=== PATIENT | female | born 1985 | race American Indian/Alaskan Native ===

== ENCOUNTER 2017-09-16 18:53 | Emergency (ER) | payer SELFPAY ==
[2017-09-16 19:42] LABS: Hematocrit 42.4 % (30.3-42.9); Hemoglobin 13.9 gm/dl (10.1-14.3); Mean Corpuscular HGB Conc 33 % (30-34); Mean Corpuscular Hemoglobin 28 pg (28-32); Mean Corpuscular Volume 85 fl (79-97); Platelet Count 204 K/mm3 (140-440); Red Blood Count 4.97 M/mm3 (3.65-5.03); Red Cell Distribution Width 14.1 % (13.2-15.2)
[2017-09-16 19:57] LABS: BUN/Creatinine Ratio 14; Blood Urea Nitrogen 7 mg/dL (7-17); Calcium 9.5 mg/dL (8.4-10.2); Hemolysis Index 13
[2017-09-16 20:09] LABS: Amorphous Crystals,Urine Few; Bacteria,Urine 1+ /HPF (Negative); Bilirubin,Urine NEG (Negative); Blood,Urine SM (Negative); Color,Urine Yellow (Yellow); Protein,Urine <15 mg/dL mg/dL (Negative); Urobilinogen,Urine < 2.0 mg/dL (<2.0)
--- NOTE | 2017-09-16 23:01 | Ultrasound Report ---
FINAL REPORT PROCEDURE: US OB < = 14 WEEKS FETUS TECHNIQUE: Real-time transabdominal sonography of the uterus, placenta, amniotic fluid, adnexa, and fetus was performed with image documentation. Measurements were obtained to determine age/size. M-mode Doppler was used to document heartbeat. CPT 23248 HISTORY: VAGINAL BLEED WITH COMPARISON: Transvaginal OB ultrasound also performed today. FINDINGS: This report was generated using images from both the transabdominal and transvaginal OB ultrasound both of which were performed today. There is an intrauterine gestation visualized. The amount of amniotic fluid is markedly decreased. A pole is seen measuring 12.3 millimeters corresponding to an age is 7 weeks 3 days. Despite persistent imaging no heartbeat was seen consistent with intrauterine demise. Uterus otherwise is unremarkable. Right ovary is unremarkable measuring 2.7 x 2.2 x 2.5 centimeters. Left ovary measures 3.6 x 2.7 x 2.9 centimeters and contains simple appearing cyst measuring 2.2 centimeter which may represent corpus luteum cyst of . No free fluid is seen in the cul-de-sac. IMPRESSION: Intrauterine visualized. No heartbeat is seen. The appearance is consistent with intrauterine demise. By crown-rump length measurement the estimated age is 7 weeks 3 days. Simple appearing cyst visualize left ovary as described. Critical value: Wet reading was given to SIRI Bills on 09/16/2017 at 10:55 p.m. Eastern standard time.
--- NOTE | 2017-09-16 23:02 | Ultrasound Report ---
FINAL REPORT PROCEDURE: US OB TRANSVAGINAL TECHNIQUE: Real-time transvaginal sonography of the uterus, placenta, amniotic fluid, adnexa, and fetus was performed with image documentation. Measurements were obtained to determine age/size. M-mode Doppler was used to document heartbeat. CPT 55599 HISTORY: VAGINAL BLEED WITH COMPARISON: Transabdominal OB ultrasound also performed today. FINDINGS: This report was generated using images from both the transabdominal and transvaginal OB ultrasound both of which were performed today. There is an intrauterine gestation visualized. The amount of amniotic fluid is markedly decreased. A pole is seen measuring 12.3 millimeters corresponding to an age is 7 weeks 3 days. Despite persistent imaging no heartbeat was seen consistent with intrauterine demise. Uterus otherwise is unremarkable. Right ovary is unremarkable measuring 2.7 x 2.2 x 2.5 centimeters. Left ovary measures 3.6 x 2.7 x 2.9 centimeters and contains simple appearing cyst measuring 2.2 centimeter which may represent corpus luteum cyst of . No free fluid is seen in the cul-de-sac. IMPRESSION: Intrauterine visualized. No heartbeat is seen. The appearance is consistent with intrauterine demise. By crown-rump length measurement the estimated age is 7 weeks 3 days. Simple appearing cyst visualize left ovary as described. Critical value: Wet reading was given to SIRI Bills on 09/16/2017 at 10:55 p.m. Eastern standard time.
--- NOTE | 2017-09-16 23:22 | Emergency Department Report ---
HPI - General Chief Complaint: Vaginal Bleeding Time Seen by Provider: 09/16/17 23:11 - HPI HPI: Room 25 The patient is a 31-year-old female presenting with chief complaint of vaginal bleeding. The patient states she is 8 weeks but has not seen an OB/ RECTIFIER OPERATOR for this . The patient states this morning she developed intermittent light vaginal bleeding associated with low pelvic cramping and pain in both eyes. Patient denies any history of fever. Location: Pelvis Duration: One day Quality: Cramping Severity: Mild Modifying factors: [see above] Context: [see above] Mode of transportation: Unknown ED Past Medical Hx - Past Medical History Previous Medical History?: No - Surgical History Past Surgical History?: No - Family History Family history: no significant - Social History Smoking Status: Never Smoker Substance Use Type: None (denies illicit drug use) - Medications Home Medications: Home Medications Medication Instructions Recorded Confirmed Last Taken Type HYDROcodone/APAP 5-325 [[place] 1 - 2 each PO Q6HR PRN #10 tablet 09/16/17 Unknown Rx 5/325] Ibuprofen [Motrin 800 MG tab] 800 mg PO Q8HR PRN #20 tablet 09/16/17 Unknown Rx ED Review of Systems ROS: Stated complaint: VAGINAL BLEEDING/ Other details as noted in HPI Constitutional: denies: fever Gastrointestinal: abdominal pain Genitourinary: abnormal menses Physical Exam - Physical Exam Vital Signs: Vital Signs 09/16/17 19:15 Temperature 99.2 F Pulse Rate 91 H Respiratory 18 Rate Blood Pressure 131/85 O2 Sat by Pulse 100 Oximetry Physical Exam: GENERAL: The patient is well-developed well-nourished female sitting on chair not appearing to be in acute distress. [] HEENT: Normocephalic. Atraumatic. Extraocular motions are intact. Patient has moist mucous membranes. NECK: Supple. Trachea midline CHEST/LUNGS: Clear to auscultation. There is no respiratory distress noted. HEART/CARDIOVASCULAR: Regular. There is no tachycardia. There is no gallop rub or murmur. ABDOMEN: Abdomen is soft, nontender. Patient has normal bowel sounds. There is no abdominal distention. SKIN: There is no rash. There is no edema. There is no diaphoresis. NEURO: The patient is awake, alert, and oriented. The patient is cooperative. The patient has normal speech and gait. MUSCULOSKELETAL: There is no evidence of acute injury. ED Course Vital Signs 09/16/17 19:15 Temperature 99.2 F Pulse Rate 91 H Respiratory 18 Rate Blood Pressure 131/85 O2 Sat by Pulse 100 Oximetry - Consultations Consultation #1: 09/16/17 23:23 DIRECTOR SOCIAL WELFARE paged 09/16/17 23:[address] Montaño-no medications at this time. Recommends patient follow up in the office to discuss treatment options. OK With patient receiving a prescription for pain medication ED Medical Decision Making - Lab Data Result diagrams: 09/16/17 19:22 09/16/17 19:22 Laboratory Tests 09/16/17 09/16/17 09/16/17 19:22 19:22 19:22 WBC 5.2 RBC 4.97 Hgb 13.9 Hct 42.4 MCV 85 MCH 28 MCHC 33 RDW 14.1 Plt Count 204 Sodium 138 Potassium 4.0 Chloride 101.2 Carbon Dioxide 24 Anion Gap 17 BUN 7 Creatinine 0.5 L Estimated GFR > 60 BUN/Creatinine Ratio 14 Glucose 103 H Calcium 9.5 HCG, Quant 4073 H Urine Color Urine Turbidity Urine pH Ur Specific Grace Urine Protein Urine Glucose (UA) Urine Ketones Urine Blood Urine Nitrite Urine Bilirubin Urine Urobilinogen Ur Leukocyte Esterase Urine WBC (Auto) Urine RBC (Auto) U Epithel Cells (Auto) Urine Bacteria (Auto) Amorphous Crystals Blood Type 09/16/17 09/16/17 19:22 Unknown WBC RBC Hgb Hct MCV MCH MCHC RDW Plt Count Sodium Potassium Chloride Carbon Dioxide Anion Gap BUN Creatinine Estimated GFR BUN/Creatinine Ratio Glucose Calcium HCG, Quant Urine Color Yellow Urine Turbidity Clear Urine pH 8.0 H Ur Specific Grace 1.017 Urine Protein <15 mg/dl Urine Glucose (UA) Neg Urine Ketones Neg Urine Blood Sm Urine Nitrite Neg Urine Bilirubin Neg Urine Urobilinogen < 2.0 Ur Leukocyte Esterase Neg Urine WBC (Auto) 12.0 H Urine RBC (Auto) 1.0 U Epithel Cells (Auto) 1.0 Urine Bacteria (Auto) 1+ Amorphous Crystals Few Blood Type B POSITIVE - Radiology Data Radiology results: report reviewed (pelvic ultrasound), image reviewed (pelvic ultrasound) [facility] [address] [place] [address] Ultrasound Report Signed Patient: OUMAR WEAVER MR#: [id number] : 1985 Acct:[id number] Age/Sex: 31 / F ADM Date: 09/16/17 Loc: ED Attending Dr: Ordering Physician: NATALIE JOE MD Date of Service: 09/16/17 Procedure(s): US OB transvaginal Accession Number(s): [id number] cc: NATALIE JOE MD FINAL REPORT PROCEDURE: US OB TRANSVAGINAL TECHNIQUE: Real-time transvaginal sonography of the uterus, placenta, amniotic fluid, adnexa, and fetus was performed with image documentation. Measurements were obtained to determine age/size. M-mode Doppler was used to document heartbeat. CPT 35400 HISTORY: VAGINAL BLEED WITH COMPARISON: Transabdominal OB ultrasound also performed today. FINDINGS: This report was generated using images from both the transabdominal and transvaginal OB ultrasound both of which were performed today. There is an intrauterine gestation visualized. The amount of amniotic fluid is markedly decreased. A pole is seen measuring 12.3 millimeters corresponding to an age is 7 weeks 3 days. Despite persistent imaging no heartbeat was seen consistent with intrauterine demise. Uterus otherwise is unremarkable. Right ovary is unremarkable measuring 2.7 x 2.2 x 2.5 centimeters. Left ovary measures 3.6 x 2.7 x 2.9 centimeters and contains simple appearing cyst measuring 2.2 centimeter which may represent corpus luteum cyst of . No free fluid is seen in the cul-de-sac. IMPRESSION: Intrauterine visualized. No heartbeat is seen. The appearance is consistent with intrauterine demise. By crown-rump length measurement the estimated age is 7 weeks 3 days. Simple appearing cyst visualize left ovary as described. Critical value: Wet reading was given to SIRI Bills on 09/16/2017 at 10:55 p.m. Eastern standard time. Transcribed By: AARON Dictated By: GARTH MAJANO MD Electronically Authenticated By: GARTH MAJANO MD Signed Date/Time: 09/16/172255 DD/ 55 TD/TT: 09/16/172255 - Differential Diagnosis demise, , spontaneous , inevitable Critical care attestation.: If time is entered above; I have spent that time in minutes in the direct care of this critically ill patient, excluding procedure time. ED Disposition Clinical Impression: demise Disposition: DC-01 TO HOME OR SELFCARE Is pt being admited?: No Does the pt Need Aspirin: No Condition: Stable Instructions: Intrauterine Demise (ED) Additional Instructions: Return to the emergency department immediately should you develop worsening symptoms, fever, inability to tolerate food or liquid or any other concerns. Prescriptions: HYDROcodone/APAP 5-325 [[place] 5/325] 1 - 2 each PO Q6HR PRN #10 tablet PRN Reason: Pain Ibuprofen [Motrin 800 MG tab] 800 mg PO Q8HR PRN #20 tablet PRN Reason: Pain Referrals: ALEXANDER MONTAÑO MD [Staff Physician] - CHUCK (Dr. Borrero is an DIRECTOR SOCIAL WELFARE. Please follow up with her immediately for further evaluation) Time of Disposition: 23:38
[2017-09-17 00:18] VITALS: BP 116/76
== END 2017-09-17 00:22 | disposition home or self-care (01) ==
LOC: ED 18:53
DX: O02.1 Missed abortion (principal); Z3A.08 8 weeks gestation of pregnancy
CPT/HCPCS: 36415; 76801; 76817; 80048; 81001; 84702; 85027; 86900; 86901; 99284

== ENCOUNTER 2018-10-13 03:26 | Outpatient (CLI) | payer OTHER ==
[2018-10-13] MEDS ORDERED: LACTATED RINGERS 1,000 ML IV ONE (05:24)
[2018-10-13 06:20] VITALS: BP 110/67
--- NOTE | 2018-10-13 06:31 | Ultrasound Report ---
PROCEDURE: US OB LIMITED TECHNIQUE: A limited OB sonogram was obtained for evaluation of the amniotic fluid index. HISTORY: CTX; NRFHTs; BPP kathy COMPARISONS: None FINDINGS: The KATHY is 8.6 cm which is within normal range. The fetus is in cephalic presentation. The placenta i s fundal in position and is grade 2. The heart rate is 149 BPM. IMPRESSION: KATHY is 8.6 cm which is normal. The heart rate is 149 BPM. Cephalic presentation.. This document is electronically signed by Vincenzo Costello MD., Oct 13 2018 06:29:18 AM ET
--- NOTE | 2018-10-13 06:34 | Ultrasound Report ---
PROCEDURE: US OB BPP WO NON-STRESS TECHNIQUE: Transabdominal imaging was obtained for evaluation of the biophysical profile. HISTORY: CTX; NRFHTs; BPP diego COMPARISONS: None FINDINGS: For breathing movements, a score of 2 out of 2 was obtained. For movements, a score of 2 out of 2 was obtained. For posture and tone, a score of 2 out of 2 was obtained. Qualitative amniotic fluid volume, a score of 2 out of 2 was obtained. The heart rate is 149 BPM. IMPRESSION: Biophysical profile score is 8 out of 8. The heart rate is 149 BPM.. This document is electronically signed by Vincenzo Costello MD., Oct 13 2018 06:32:25 AM ET
== END 2018-10-13 08:16 | disposition home or self-care (01) ==
LOC: TRG 03:26
PROVIDERS: ATTEND Obstetrics & Gynecology
DX: O62.9 Abnormality of forces of labor, unspecified (principal); Z3A.40 40 weeks gestation of pregnancy
CPT/HCPCS: 59025; 76815; 76819; 96360; J7120

== ENCOUNTER 2018-10-13 12:15 | Inpatient (IN) | payer OTHER ==
[2018-10-13] MEDS ORDERED: SUBLIMAZE ONE (12:38)
[2018-10-13] MEDS ORDERED: LACTATED RINGERS 1,000 ML ONE (12:38)
[2018-10-13] MEDS ORDERED: AMPICILLIN/NS 2 GM/100 ML 2 GM/100 ML BAG IV ONE ×2 (12:46→13:07)
[2018-10-13] MEDS ORDERED: STADOL IV PRN (12:55)
[2018-10-13] MEDS ORDERED: PITOCin/NS 20 UNIT/1000ML DRIP 20,000 MILLIUNITS/1,000 ML BAG IV ONE (13:02)
[2018-10-13] MEDS ORDERED: BRETHINE SUB-Q PRN (13:18)
[2018-10-13] MEDS ORDERED: XYLOCAINE 2% INFILTRATI ONE (13:18)
[2018-10-13] MEDS ORDERED: PHENERGAN PO PRN ×2 (13:18→14:09)
[2018-10-13] MEDS ORDERED: BRETHINE IVP PRN (13:18)
[2018-10-13] MEDS ORDERED: ZOFRAN IV PRN ×2 (13:18→14:09)
[2018-10-13] MEDS ORDERED: NARCAN 0.4 MG/1 ML IV PRN (13:18)
[2018-10-13] MEDS ORDERED: MINERAL OIL PO PRN (13:18)
[2018-10-13 13:28] LABS: Hematocrit 38.1 % (30.3-42.9); Hemoglobin 12.9 gm/dl (10.1-14.3); Mean Corpuscular HGB Conc 34 % (30-34); Mean Corpuscular Volume 87 fl (79-97); Red Cell Distribution Width 14.6 % (13.2-15.2)
[2018-10-13 13:30] LABS: Platelet Count 93 K/mm3 (140-440)
[2018-10-13] MEDS ORDERED: METHERGINE IM ONE (13:51)
[2018-10-13] MEDS ORDERED: CYTOTEC ONE (13:51)
[2018-10-13] MEDS ORDERED: PITOCin/NS 20 UNIT/1000ML DRIP 20 UNITS/1,000 ML BAG IV SCH ×2 (14:00→15:00)
[2018-10-13] MEDS ORDERED: LACTATED RINGERS 1,000 ML IV SCH ×2 (14:00)
[2018-10-13] MEDS ORDERED: SUBLIMAZE IV ONE (14:00)
[2018-10-13] MEDS ORDERED: PITOCin/NS 30 UNIT/500ML 30 UNITS/500 ML BAG IV SCH ×2 (14:00)
--- NOTE | 2018-10-13 14:01 | History and Physical Report ---
History of Present Illness Date of examination: 10/13/18 Date of admission: 10/13/18 12:22 Chief complaint: contractions History of present illness: This is a 32 yo at 40 weeks here for contractions in active labor noted to be 6cm from 3cm this am. She is apatient of Dr. Stephanie Grayson. Records unavailable. GBS unknown Past History Past Medical History: no pertinent history Past Surgical History: no surgical history Family/Genetic History: none Social history: no significant social history, . denies: smoking, alcohol abuse, prescription drug abuse - Obstetrical History Expected Date of Delivery: 10/13/18 Actual Gestation: 40 Week(s) 0 Day(s) : 4 Para: 3 Hx # Term Pregnancies: 3 Number of Pregnancies: 0 Spontaneous Abortions: 0 Induced : 0 Number of Living Children: 3 Medications and Allergies Allergies Allergy/AdvReac Type Severity Reaction Status Date / Time No Known Allergies Allergy Verified 10/13/18 05:26 Home Medications Medication Instructions Recorded Confirmed Last Taken Type Vit-Fe Fumar-FA [ 1 tab PO QDAY 10/13/18 10/13/18 10/11/18 History Vitamin] Active Meds: Active Medications Butorphanol Tartrate (Stadol) 2 mg IV Q2H PRN PRN Reason: Labor Pain Ephedrine Sulfate (Ephedrine Sulfate) 10 mg IV Q2M PRN PRN Reason: Hypotension Fentanyl (Sublimaze) 100 mcg IV ONCE ONE Stop: 10/13/18 14:01 Ampicillin Sodium (Polycillin/Ns 2 Gm/100 Ml) 2 gm in 100 mls @ 100 mls/hr IV ONCE ONE Stop: 10/13/18 14:06 Last Admin: 10/13/18 12:49 Dose: 100 mls/hr Documented by: Ampicillin Sodium (Ampicillin/Ns 1 Gm/50 Ml) 1 gm in 50 mls @ 200 mls/hr IV Q4H ABDULAZIZ Lactated Ringer's (Lactated Ringers) 1,000 mls @ 125 mls/hr IV DIRECT ABDULAZIZ Last Admin: 10/13/18 12:30 Dose: 125 mls/hr Documented by: Oxytocin/Sodium Chloride (Pitocin/Ns 20 Unit/1000ml Drip) 20 units in 1,000 mls @ 125 mls/hr IV DIRECT ABDULAZIZ Oxytocin/Sodium Chloride (Pitocin/Ns 30 Unit/500ml) 30 units in 500 mls @ 1 mls/hr IV TITR ABDULAZIZ; Protocol Last Admin: 10/13/18 13:33 Dose: 4 milliunits/min, 4 mls/hr Documented by: Oxytocin/Sodium Chloride (Pitocin/Ns 30 Unit/500ml) 30 units in 500 mls @ 0 mls/hr IV TITR ABDULAZIZ; Protocol Lactated Ringer's (Lactated Ringers) 1,000 mls @ 125 mls/hr IV DIRECT ABDULAZIZ Mineral Oil (Mineral Oil) 30 ml PO QHS PRN PRN Reason: Constipation Naloxone HCl (Narcan 0.4 Mg/1 Ml) 0.1 mg IV Q2MIN PRN PRN Reason: Res Rate </= 8 or 02 SAT < 92% Ondansetron HCl (Zofran) 4 mg IV Q8H PRN PRN Reason: Nausea And Vomiting Promethazine HCl (Phenergan) 25 mg PO Q6H PRN PRN Reason: Nausea And Vomiting Terbutaline Sulfate (Brethine) 0.25 mg SUB-Q ONCE PRN PRN Reason: Hyperstimulation/Hypertonicity Terbutaline Sulfate (Brethine) 0.25 mg IVP ONCE PRN PRN Reason: Hyperstimulation/Hypertonicity Review of Systems All systems: negative Genitourinary: contractions - Vital Signs Vital signs: Vital Signs Temp Resp 98.3 F 20 10/13/18 12:31 10/13/18 12:31 Temp Pulse Resp BP Pulse Ox 98.3 F 86 20 94 10/13/18 12:31 10/13/18 13:03 10/13/18 12:31 10/13/18 13:03 - Physical Exam Breasts: Positive: normal Cardiovascular: Regular rate, Normal S1 Lungs: Positive: Clear to auscultation, Normal air movement Abdomen: Positive: normal appearance, soft, normal bowel sounds. Negative: distention, tenderness, guarding Genitourinary (Female): Positive: normal external genitalia, normal perenium Vulva: both: normal Vagina: Positive: normal moisture Uterus: Positive: normal size, enlarged Adnexa: both: normal Anus/Rectum: Positive: normal perianal skin Extremities: Positive: normal Deep Tendon Reflex Grade: Normal +2 - Obstetrical FHR: auscultation normal, category 1 Cervical Dilatation: 6 Cervical Effacement Percentage: 80 station: -1 Uterine Contraction Pattern: Regular Uterine Tone Measurement Phase: Contraction Uterine Contraction Intensity: Strong/Firm Results Result Diagrams: 10/13/18 12:23 Abnormal lab results 10/13/18 Range/Units 12:23 Plt Count 93 L (140-440) K/mm3 All other labs normal. Assessment and Plan A/P HD#1 for active labor Multiparous GBS unknown- Amp given IVF, labs , electronic monitor Active labor expect vaginal delivery
--- NOTE | 2018-10-13 14:08 | Procedure Note ---
OB Delivery Note - Delivery Date of Delivery: 10/13/18 Surgeon: PAOLA OLIVIA Estimated blood loss: 300cc - Vaginal Delivery presentation: vertex Delivery position: OA Delivery induction: none Delivery augmentation: rupture of membranes, pitocin Route of delivery: Delivery placenta: spontaneous Delivery cord: nuchal cord, 3 umbilical vessels Episiotomy: none Delivery laceration: 1st degree Delivery repair: vicryl (2-0 vicryl) Anesthesia: local Delivery comments: Patient was noted to be c/c +2 after arom clear flui d and commenced to pushing a viable female infant at 1339. The nasopharynx and oropharynx suctioned. Nuchal cord x 1 loose reduced prior to delivery The cord was clamped and cut and placed on mom chest. The Apgars noted at 8 and 9. Weight of female infant 8 pounds 5 oz. Survey of perineum did not revealed for laceration. Repaired in normal sterile fashion with 2-0 vicryl. The placenta delivered intact with three vessel cord. Bleeding was noted to be 300cc. Some active bleeding noted and treated with uterine massage and methergine with excellent hemostasis Patient tolerated procedure well. - Infant A at 1 minute: 8 at 5 minutes: 9 Gender: Female (8 pounds 5 oz.)
[2018-10-13] MEDS ORDERED: PERCOCET 5/325 PO PRN (14:09)
[2018-10-13] MEDS ORDERED: PHENERGAN PR PRN (14:09)
[2018-10-13] MEDS ORDERED: LANSINOH TP PRN (14:09)
[2018-10-13] MEDS ORDERED: ANUCORT-HC PR PRN (14:09)
[2018-10-13] MEDS ORDERED: BENADRYL PO PRN (14:09)
[2018-10-13] MEDS ORDERED: DULCOLAX PR PRN (14:09)
[2018-10-13] MEDS ORDERED: TORADOL IV PRN (14:09)
[2018-10-13] MEDS ORDERED: MILK OF MAGNESIA PO PRN (14:09)
[2018-10-13] MEDS ORDERED: TYLENOL PO PRN (14:09)
[2018-10-13] MEDS: IBUPROFEN PO SCH (14:36)
[2018-10-13] MEDS ORDERED: SODIUM CHLORIDE FLUSH SYRINGE 10 ML IV SCH (15:00)
[2018-10-13] MEDS: METHERGINE PO SCH ×2 (15:36→21:56)
[2018-10-13] MEDS ORDERED: AMPICILLIN/NS 1 GM/50 ML 1 GM/50 ML BAG IV SCH (17:00)
[2018-10-13] MEDS: SENOKOT S PO SCH (18:38)
[2018-10-13] MEDS: COLACE PO SCH (21:55)
[2018-10-13] MEDS: TUCKS PAD TP PRN (21:56)
[2018-10-13] MEDS: NORCO 5/325 PO PRN (22:49)
[2018-10-14] MEDS: IBUPROFEN PO SCH ×4 (01:10→21:20)
[2018-10-14 02:36] LABS: Hematocrit 36.9 % (30.3-42.9); Hemoglobin 12.6 gm/dl (10.1-14.3)
[2018-10-14] MEDS: NORCO 5/325 PO PRN ×3 (05:55→21:19)
[2018-10-14] MEDS: METHERGINE PO SCH ×3 (05:56→21:18)
[2018-10-14] MEDS ORDERED: BOOSTRIX IM ONE (06:00)
[2018-10-14] MEDS: PRENATAL VITAMIN PO SCH (09:53)
[2018-10-14] MEDS: COLACE PO SCH ×2 (09:53→21:19)
[2018-10-14] MEDS: SENOKOT S PO SCH ×3 (09:54→21:18)
[2018-10-14] MEDS ORDERED: M-M-R II VACCINE SUB-Q ONE (14:09)
[2018-10-15] MEDS: IBUPROFEN PO SCH ×3 (04:15→14:22)
[2018-10-15] MEDS: NORCO 5/325 PO PRN (04:16)
[2018-10-15] MEDS: METHERGINE PO SCH (05:40)
[2018-10-15] MEDS: TUCKS PAD TP PRN (05:41)
[2018-10-15] MEDS: PRENATAL VITAMIN PO SCH (09:18)
[2018-10-15] MEDS: COLACE PO SCH (09:18)
--- NOTE | 2018-10-15 09:36 | Progress Note ---
Assessment and Plan PPD 2 s/p . Doing well. Pt able to be discharged on today after 48 hour hold on baby due to untreated GBS. Subjective - Subjective Date of service: 10/15/18 Principal diagnosis: Patient reports: appetite normal, voiding normally, pain well controlled, ambulating normally : doing well Objective - Vital Signs Latest vital signs: Vital Signs Temp Pulse Resp BP BP Pulse Ox 10/15/18 07:29 97.8 F 54 L 18 120/67 10/15/18 01:22 97.7 F 59 L 18 102/66 98 10/14/18 16:14 98.0 F 75 20 113/72 97 10/14/18 15:58 14 10/14/18 11:58 98.1 F 80 20 103/68 98 Intake and Output 10/14/18 10/15/18 10/15/18 22:59 06:59 14:59 Intake Total 120 360 480 Balance 120 360 480 Intake: Oral 120 480 Intake, Free Water 360 Other: Total, Intake Amount 120 480 Voiding Method Toilet # Voids Void 1 2 - Exam Breasts: Present: deferred Cardiovascular: Present: Regular rate, Normal S1, Normal S2 Lungs: Present: Clear to auscultation, Normal air movement Abdomen: Present: normal appearance, soft Extremities: Present: normal Incision: Present: normal, dry, intact
--- NOTE | 2018-10-15 09:39 | Discharge Summary ---
Providers - Providers Date of Admission: 10/13/18 12:22 Date of discharge: 10/15/18 Attending physician: DEBORAH FRAZIER Primary care physician: DEBORAH FRAZIER Hospitalization Reason for admission: active labor Delivery: Laceration: none complications: none Discharge diagnosis: IUP at term delivered [place] baby: female Hospital course: unremarkable Condition at discharge: Good Disposition: DC-01 TO HOME OR SELFCARE Plan - Discharge Medications Prescriptions: Ferrous Sulfate [Feosol 325 MG tab] 325 mg PO BID #30 tablet Ibuprofen [Motrin] 600 mg PO Q8H PRN #30 tablet PRN Reason: Pain oxyCODONE /ACETAMINOPHEN [Percocet 5/325] 1 tab PO Q6HR PRN #20 tablet PRN Reason: Pain - Provider Discharge Summary Activity: routine, no sex for 6 weeks, no heavy lifting 4 weeks, no strenuous exercise Diet: routine Instructions: routine Additional instructions: [] Smoking cessation referral if applicable(refer to patient education folder for contact #) [] Refer to [facility]'s [facility] Booklet Call your doctor immediately for: * Fever > 100.5 * Heavy vaginal bleeding ( >1 pad per hour) * Severe persistent headache * Shortness of breath * Reddened, hot, painful area to leg or breast * Drainage or odor from incision. * Keep incision clean and dry at all times and follow doctor's instructions regarding bathing/showering - Follow up plan Follow up: DEBORAH FRAZIER MD [Primary Care Provider] - 6 Weeks
[2018-10-15 17:00] VITALS: BP 114/58
== END 2018-10-15 17:53 | disposition home or self-care (01) | DRG 807 ==
LOC: TRG 12:15 → LD 12:22 → OB 15:41
PROVIDERS: ADMIT Obstetrics & Gynecology; ATTEND Obstetrics & Gynecology
PROC: 10E0XZZ Delivery of Products of Conception, External Approach (ICD-10-PCS; principal; 2018-10-13)
PROC: 0HQ9XZZ Repair Perineum Skin, External Approach (ICD-10-PCS; 2018-10-13)
PROC: 3E0234Z Introduction of Serum, Toxoid and Vaccine into Muscle, Percutaneous Approach (ICD-10-PCS; 2018-10-14)
DX: O69.1XX0 Labor and delivery complicated by cord around neck, with compression, not applicable or unspecified (principal); Z37.0 Single live birth; Z3A.40 40 weeks gestation of pregnancy; O70.0 First degree perineal laceration during delivery; Z23 Encounter for immunization
CPT/HCPCS: 36415; 85014; 85018; 85027; 86592; 86850; 86900; 86901; G0378; J0290; J2210; J2590; J3010; J7120

== ENCOUNTER 2019-03-25 08:38 | Day surgery (SDC) | payer OTHER ==
[~2019-03-25 08:38] MED LIST: ceFAZolin/Water 2 GM/20 ML 2 GM/20 ML SYRINGE IV NR
[2019-03-25] MEDS ORDERED: ONDANSETRON 4 MG/2 ML INJ IV PRN (09:24)
[2019-03-25] MEDS ORDERED: fentaNYL 100 MCG/2 ML INJ IV PRN (09:24)
--- NOTE | 2019-03-25 09:25 | Anesthesia Day of Surgery ---
Anesthesia Day of Surgery - Day of Surgery Patient Examined: Yes Patient H&P Reviewed: Yes Patient is NPO: Yes
[2019-03-25] MEDS ORDERED: ACETAMINOPHEN 500 MG TAB PO NR (09:28)
--- NOTE | 2019-03-25 09:28 | Anesthesia Consultation ---
Anesthesia Consult and Med Hx Date of service: 03/25/19 - Airway Anesthetic Teeth Evaluation: Good ROM Head & Neck: Adequate Mental/Hyoid Distance: Adequate Mallampati Class: Class II Intubation Access Assessment: Good - Pre-Operative Health Status ASA Pre-Surgery Classification: ASA1 Proposed Anesthetic Plan: General - Pulmonary Hx Asthma: No COPD: No Hx Pneumonia: No - Cardiovascular System Hx Hypertension: No - Central Nervous System Hx Seizures: No Hx Psychiatric Problems: No - Endocrine Hx Renal Disease: No Hx End Stage Renal Disease: No Hx Hypothyroidism: No Hx Hyperthyroidism: No - Hematic Hx Anemia: No Hx Sickle Cell Disease: No - Other Systems Hx Alcohol Use: Yes (occas) Hx Cancer: No
[2019-03-25] MEDS ORDERED: LACTATED RINGERS 1,000 ML IV SCH (10:00)
[2019-03-25] MEDS ORDERED: SUCCINYLCHOLINE CHLORIDE 200 MG/10 ML INJ MDV ONE (10:00)
[2019-03-25] MEDS ORDERED: CELECOXIB 200 MG CAP PO NR (10:00)
[2019-03-25] MEDS ORDERED: MIDAZOLAM 2 MG/2 ML INJ IV NR (10:00)
[2019-03-25] MEDS ORDERED: BUPIVACAINE/PF (0.25%) 2.5 MG/ML 30 ML VIAL INFILTRATI ONE ×2 (10:40→12:13)
[2019-03-25] MEDS ORDERED: fentaNYL 100 MCG/2 ML INJ ONE ×2 (10:43)
[2019-03-25] MEDS ORDERED: LIDOCAINE MPF (2%) 20 MG/1 ML VIAL 5 ML ONE (10:43)
[2019-03-25] MEDS ORDERED: NEOSTIGMINE 10MG/10 ML INJ MDV ONE (10:43)
[2019-03-25] MEDS ORDERED: PHENYLEPHRINE/NS 1,000 MCG/10 ML SYRINGE (OR USE) IV ONE (10:43)
[2019-03-25] MEDS ORDERED: PROPOFOL 200 MG/20 ML VIAL IV ONE (10:43)
[2019-03-25] MEDS ORDERED: ONDANSETRON 4 MG/2 ML INJ ONE ×2 (10:43→13:02)
[2019-03-25] MEDS ORDERED: ROCURONIUM 50 MG/5 ML INJ IV ONE (10:43)
[2019-03-25] MEDS ORDERED: dexAMETHasone 20 MG/5 ML VIAL ONE (10:43)
[2019-03-25] MEDS ORDERED: GLYCOPYRROLATE 0.4 MG/2 ML INJ ONE (10:43)
--- NOTE | 2019-03-25 11:19 | Short Stay Summary ---
Short Stay Documentation Date of service: 03/25/19 Narrative H&P: Patient is a 33 year old who presents for elective sterilization. She is 5 months post from a vaginal delivery. - History Principal diagnosis: Undesired fertility H&P: obtained from office Past Medical History: No medical history Past Surgical History: No surgical history Social history: - Allergies and Medications Current Medications: Allergies No Known Allergies Allergy (Verified 03/19/19 16:35) Home Medications Medication Instructions Recorded Confirmed Last Taken Type No Known Home Medications [No 03/19/19 03/19/19 Unknown History Reported Home Medications] Active Medications Acetaminophen (Tylenol) 1,000 mg PO ONCE NR Stop: 03/25/19 13:00 Last Admin: 03/25/19 09:38 Dose: 1,000 mg Documented by: Celecoxib (Celebrex) 200 mg PO PREOP NR Stop: 03/25/19 13:00 Last Admin: 03/25/19 09:39 Dose: 200 mg Documented by: Fentanyl (Sublimaze) 50 mcg IV Q5MIN PRN PRN Reason: Pain , Severe (7-10) Stop: 03/25/19 23:00 Hydromorphone HCl (Dilaudid) 0.5 mg IV Q10MIN PRN PRN Reason: Pain , Severe (7-10) Stop: 03/25/19 20:00 Cefazolin Sodium (Ancef/Sterile Water 2 Gm/20 Ml) 2 gm in 20 mls @ 80 mls/hr IV PREOP NR; Protocol Stop: 03/25/19 16:00 Lactated Ringer's (Lactated Ringers) 1,000 mls @ 100 mls/hr IV DIRECT ABDULAZIZ Last Admin: 03/25/19 09:38 Dose: 100 mls/hr Documented by: Midazolam HCl (Versed) 2 mg IV PREOP NR Stop: 03/25/19 23:59 Last Admin: 03/25/19 10:04 Dose: 2 mg Documented by: Ondansetron HCl (Zofran) 4 mg IV ONCE PRN PRN Reason: Nausea And Vomiting Stop: 03/25/19 13:00 - Physical exam General appearance: no acute distress Integumentary: no rash, no growths, no abnormal pigmentation HEENT: PERRLA Lungs: Clear to auscultation, Normal air movement Breasts: deferred Heart: Regular rate, Normal S1, Normal S2 Gastrointestinal: normal, normoactive bowel sounds Female Genitourinary: deferred Rectal Exam: deferred Extremities: no ischemia, No edema - Brief post op/procedure progress note Date of procedure: 03/25/19 Pre-op diagnosis: Undesired fertility Post-op diagnosis: same Procedure: Laparoscopic Bilateral salpingectomy Anesthesia: GETA Findings: Normal uterus tubes and ovaries Surgeon: DEBORAH FRAZIER Estimated blood loss: minimal Pathology: list (right an left fallopian tubes) Specimen disposition: to lab Condition: stable - Hospital course Hospital course: unremarkable - Disposition Condition at discharge: Good Disposition: DC-01 TO HOME OR SELFCARE Short Stay Discharge Plan Activity: advance as tolerated Weight Bearing Status: Weight Bear as Tolerated Diet: regular Follow up with: DEBORAH FRAZIER MD [Staff Physician] - 14 Days Prescriptions: Ibuprofen [Motrin 800 MG tab] 800 mg PO Q8HR PRN #30 tablet PRN Reason: Pain, Moderate (4-6) HYDROcodone/APAP 5-325 [[place] 5/325] 2 each PO Q6HR PRN #30 tablet PRN Reason: Pain
[2019-03-25] MEDS ORDERED: SODIUM CHLORIDE 0.9% IRR 1,500 ML BOTTLE IR ONE (12:13)
[2019-03-25] MEDS: HYDROmorphone 1 MG/1 ML INJ IV PRN ×2 (13:02→13:28)
--- NOTE | 2019-03-25 13:02 | Operative Report ---
Operative Report Operative Report: Preoperative diagnosis: Undesired fertility Postoperative diagnosis: Same Procedure: Bilateral laparoscopic salpingectomy Surgeon: Stephanie Grayson Anesthesia: General EBL: Minimal IV fluids: 700 mL Urine output: 200 mL Findings: Normal uterus tubes and ovaries Specimens: Portion of right and left fallopian tube Complications: None The patient was properly identified as herself. She was then taken to the OR with IV running and in place. She was given general anesthesia without difficulty. She was placed in a dorsal lithotomy position. She was then prepped and draped in normal sterile fashion. Attention was turned to the patient's vagina. Her bladder was drained of clear urine with a red rubber catheter. The speculum was then placed the patient's vagina. The cervix was visualized and grasped with tenaculum. The acorn cannula was then inserted. The surgeon's gloves were changed and attention turned to the patient's abdomen. A small incision was made in the patient's umbilicus incision a 5 mm trocar was placed. The laparoscope confirmed intra-abdominal placement. The abdomen was insufflated with CO2 gas to approximately 25 mmHg. Both fallopian tubes were identified. With direct visualization a second trocar was placed through an incision in the left lower quadrant. Both tubes were found and followed out to the fimbriated ends. Each tube was cauterized at the portion nearest the cornua, then cauterized across the broad ligament until the tube was completely detached. There was excellent hemostasis at the end of this portion of the procedure. Each tube was handed off for pathology. At this point the abdomen was deflated. All instruments were then removed from the abdomen. The incisions were then closed with 4-0 Monocryl. The incisions were also injected with quarter percent Marcaine. The patient tolerated the procedure well she was then awakened and taken recovery in stable condition. Sponge needle and instrument counts were correct 2.
[2019-03-25 13:47] VITALS: BP 110/64
--- NOTE | 2019-03-26 08:53 | Post Anesthesia Evaluation ---
- Post Anesthesia Evaluation Patient Participated: Yes Airway Patent: Yes Stable Respiratory Function: Yes Nausea/Vomiting: No Temp > 96.8F: Yes Pain Manageable: Yes Adequeate Hydration: Yes Anesthesia Complications: No Block Receding Appropriately: Not Applicable Patient on Ventilator: No
== END 2019-03-25 14:23 | disposition home or self-care (01) ==
LOC: OR 08:38
PROVIDERS: ATTEND Obstetrics & Gynecology
DX: Z30.2 Encounter for sterilization (principal); N83.8 Other noninflammatory disorders of ovary, fallopian tube and broad ligament; Z79.899 Other long term (current) drug therapy; Z72.89 Other problems related to lifestyle; Z98.890 Other specified postprocedural states
CPT/HCPCS: 58661; 81025; 88302; J0330; J0690; J1100; J1170; J2250; J2370; J2405; J2704; J2710; J3010; J7120